=== PATIENT | female | born 1975 | race Caucasian/White ===

== ENCOUNTER 2016-12-24 20:30 | Emergency (ER) | payer OTHER ==
[~2016-12-24] VITALS: Ht 160 cm; Wt 61.7 kg
[2016-12-24 20:30] VITALS: BP 112/81
[2016-12-24] MEDS ORDERED: levETIRAcetam 500 MG in D5W 110 ML IV ONE (20:45)
[2016-12-24] MEDS ORDERED: levETIRAcetam 500mg vial IV ONE ×2 (20:50→20:58)
[2016-12-24 21:17] LABS: BASOPHILS % (AUTO) 1.5 % (0.0-2.0); EOSINOPHILS % (AUTO) 3.8 % (0.0-3.0); LYMPHOCYTES % (AUTO) 33.5 % (20.0-45.0); MEAN CORPUSCULAR HEMOGLOBIN 30.1 PG (27.0-31.0); MEAN CORPUSCULAR HGB CONC 33.7 G/DL (32.0-36.0); MEAN CORPUSCULAR VOLUME 89 FL (80-99); MONOCYTES % (AUTO) 10.8 % (1.0-10.0); NEUTROPHILS % (AUTO) 50.5 % (45.0-75.0); PLATELET COUNT 338 K/UL (150-450); RED BLOOD COUNT 4.22 M/UL (4.20-5.40); RED CELL DISTRIBUTION WIDTH 11.6 % (11.6-14.8); WHITE BLOOD COUNT 10.6 K/UL (4.8-10.8)
[2016-12-24] MEDS ORDERED: KEPPRA500 M4 ORAL (21:32)
[2016-12-24 21:37] LABS: ALANINE AMINOTRANSFERASE 11 U/L (3-33); ALBUMIN/GLOBULIN RATIO 1.3 (1.0-2.7); ANION GAP 23 (5-15); ASPARTATE AMINO TRANSFERASE 20 U/L (5-40); CALCIUM 9.6 mg/dL (8.6-10.2); CARBON DIOXIDE 19 mEQ/L (20-30); CHLORIDE 93 mEQ/L (98-107); CREATININE 0.9 mg/dL (0.5-0.9); GLOMERULAR FILTRATION RATE > 60 mL/min (>60); HEMOLYSIS 6; POTASSIUM 3.4 mEQ/L (3.4-4.9); SODIUM 135 mEQ/L (135-145); TOTAL PROTEIN 7.4 g/dL (6.6-8.7)
[2016-12-24 21:48] VITALS: BP 112/81
--- NOTE | 2016-12-25 00:02 | Emergency Room Report ---
History of Present Illness General Chief Complaint: Seizure Source: Patient Present Illness HPI Patient is 41-year-old female presented after having acute onset of seizure. The patient was noted to have been feeling well prior to seizure. She had recently traveled to [place]. She reports having prior history of hysterectomy. She reports only taking Wellbutrin for depression. She denies any severe headache. Patient was noted to have fallen and hit her head. Seizure was brief in nature. She denies any current symptoms other than mild headache. The patient was noted to be nauseated was given Zofran by EMS.The patient no prior history of seizures. Allergies: Coded Allergies: No Known Allergies (Unverified , 12/24/16) Patient History Past Medical History: see triage record Last Menstrual Period: n/a Reviewed Nursing Documentation: PMH: Agreed, PSxH: Agreed Nursing Documentation-PMH Past Medical History: No History, Except For Review of Systems All Other Systems: negative except mentioned in HPI Physical Exam Vital Signs Date Time Temp Pulse Resp B/P Pulse Ox O2 Delivery O2 Flow Rate FiO2 12/24/16 20:12 97.2 109 17 112/81 99 Room Air Sp02 EP Interpretation: reviewed, normal General Appearance: normal inspection, well appearing, no apparent distress, alert, GCS 15, non-toxic Head: other - scalp soft tissue swelling ENT: normal ENT inspection, hearing grossly normal, normal voice, other - tongue abrasion Neck: normal inspection, full range of motion, supple, no bony tend Respiratory: normal inspection, lungs clear, normal breath sounds, no respiratory distress, no retraction, no wheezing Cardiovascular #1: regular rate, rhythm, no edema Gastrointestinal: normal inspection, normal bowel sounds, non tender, soft, no guarding, no hernia Genitourinary: no CVA tenderness Musculoskeletal: normal inspection, back normal, normal range of motion Neurologic: normal inspection, alert, oriented x3, responsive, butcher meat III-XII nml as tested, motor strength/tone normal, normal gait, speech normal, no pronator Psychiatric: normal inspection, judgement/insight normal, mood/affect normal Skin: normal color, no rash Medical Decision Making Diagnostic Impression: Primary Impression: Epileptic seizure, generalized Additional Impression: Abrasion of tongue ER Course Patient presented for seizure. Differential diagnosis included cysticercosis, electrolyte abnormality, mass lesion, or cranial hemorrhage. Because of complexity of patient's case laboratory testing and imaging studies were ordered. Laboratory studies were unremarkable. Patient was given IVKeppra emergency department. CT the head interpreted by me showed no evident hemorrhage or mass lesion. The patient was given prescription for Keppra advised to followup with outpatient MRI. The patient was subsequently discharged home advised followup with neurology for EEG. She is advised not to drive or operate heavy machinery.CT of the head was subsequently to radiology to show a lucency in the parietal region which may represent mass versus ischemic area. The patient was advised to have further workup including MRI and was advised to return to hospital for further workup Labs Test 12/24/16 20:30 White Blood Count 10.6 K/UL (4.8-10.8) Red Blood Count 4.22 M/UL (4.20-5.40) Hemoglobin 12.7 G/DL (12.0-16.0) Hematocrit 37.7 % (37.0-47.0) Mean Corpuscular Volume 89 FL (80-99) Mean Corpuscular Hemoglobin 30.1 PG (27.0-31.0) Mean Corpuscular Hemoglobin Concent 33.7 G/DL (32.0-36.0) Red Cell Distribution Width 11.6 % (11.6-14.8) Platelet Count 338 K/UL (150-450) Mean Platelet Volume 6.0 FL (6.5-10.1) Neutrophils (%) (Auto) 50.5 % (45.0-75.0) Lymphocytes (%) (Auto) 33.5 % (20.0-45.0) Monocytes (%) (Auto) 10.8 % (1.0-10.0) Eosinophils (%) (Auto) 3.8 % (0.0-3.0) Basophils (%) (Auto) 1.5 % (0.0-2.0) D-Dimer 299 ng/mL (<500) Sodium Level 135 mEQ/L (135-145) Potassium Level 3.4 mEQ/L (3.4-4.9) Chloride Level 93 mEQ/L (98-107) Carbon Dioxide Level 19 mEQ/L (20-30) Anion Gap 23 (5-15) Blood Urea Nitrogen 21 mg/dL (7-23) Creatinine 0.9 mg/dL (0.5-0.9) Estimat Glomerular Filtration Rate > 60 mL/min (>60) Glucose Level 137 mg/dL (74-106) Calcium Level 9.6 mg/dL (8.6-10.2) Total Bilirubin 0.3 mg/dL (0.0-1.2) Aspartate Amino Transf (AST/SGOT) 20 U/L (5-40) Alanine Aminotransferase (ALT/SGPT) 11 U/L (3-33) Alkaline Phosphatase 76 U/L (35-104) Total Protein 7.4 g/dL (6.6-8.7) Albumin 4.3 g/dL (3.5-5.2) Globulin 3.1 g/dL Albumin/Globulin Ratio 1.3 (1.0-2.7) Last Vital Signs Date Time Temp Pulse Resp B/P Pulse Ox O2 Delivery O2 Flow Rate FiO2 12/24/16 20:30 97.2 16 112/81 99 Room Air 12/24/16 20:30 96 Status: improved Disposition: HOME, SELF-CARE Condition: Stable Scripts Levetiracetam (KEPPRA) 500 Mg Tablet 500 MG ORAL EVERY 12 HOURS, #60 TAB 0 Refills Prov: Capo Mcnulty 12/24/16 Patient Instructions: Seizure, Adult Additional Instructions: do not drive a car or operate any heavy machinery Capo Mcnulty Dec 25, 2016 00:02
--- NOTE | 2016-12-25 10:16 | Diagnostic Imaging Report ---
Indication: Headache Technique: Contiguous 5 mm thick transaxial imaging of the head obtained in a Siemens Sensation [address] scanner. Soft tissue and bone windows generated. Total Dose length Product (DLP): [address] Dose Index Volume (CTDIvol): 70.38 mGy Comparison: none Findings: Area of low attenuation subcortical white matter in the left parietal region (for example image 21, series 3 or image 28 series 5). Further evaluation is recommended. There is no hemorrhage or mass effect, midline shift or hydrocephalus. The ventricles and basal cisterns appear normal. Osseous structures are unremarkable in appearance Impression: Abnormal focus of low attenuation left parietal subcortical white matter. Further MRI evaluation is recommended. [facility] has communicated the preliminary results to the Emergency Department. Their findings are largely concordant with this report. The CT scanner at [facility] is accredited by the [employer] and the scans are performed using dose optimization techniques as appropriate to a performed exam including Automatic Exposure control.
--- NOTE | 2016-12-26 16:44 | Cardiology Report ---
APPROVED REPORT EKG Measurement Heart [id number] Normal sinus rhythm Possible Left atrial enlargement Borderline ECG
== END 2016-12-24 21:48 | disposition home or self-care (01) ==
LOC: EDBD 20:30 → EMR 20:59
DX: G40.409 Other generalized epilepsy and epileptic syndromes, not intractable, without status epilepticus (principal); R51 Headache; S00.512A Abrasion of oral cavity, initial encounter; W19.XXXA Unspecified fall, initial encounter; Y93.9 Activity, unspecified; Y92.9 Unspecified place or not applicable
CPT/HCPCS: 70450; 80053; 82962; 85025; 85379; 93005; 96374; 99284; J1953